=== PATIENT | male | born 1965 | race Caucasian/White ===

== ENCOUNTER → 2017-01-31 | Outpatient (CLI) | payer OTHER | END | disposition home or self-care (01) | LOC: CFH 08:57 | PROVIDERS: ATTEND Nurse Practitioner Primary Care | DX: M62.08 Separation of muscle (nontraumatic), other site (principal); R09.89 Other specified symptoms and signs involving the circulatory and respiratory systems | CPT/HCPCS: 93979 ==

== ENCOUNTER → 2017-11-10 | Outpatient (CLI) | payer OTHER | LOC: CFH 13:06 | PROVIDERS: ATTEND Nurse Practitioner Primary Care | DX: M79.671 Pain in right foot (principal) ==